=== PATIENT | male | born 1935 | race African-American/Black ===

== ENCOUNTER 2020-01-19 05:53 | Inpatient (IN) | payer MEDICARE, BC ==
[~2020-01-19] VITALS: Ht 172.7 cm; Wt 80.3 kg
[2020-01-19] MEDS ORDERED: NITROGLYCERIN OINT 1GM/INCH UDPKT TD ONE (06:30)
[2020-01-19 06:41] LABS: BASOPHILS % 1.1 % (0.0-2.0); EOSINOPHILS % 0.6 % (0.0-5.0); HEMOGLOBIN. 11.8 g/dL (14.0-18.0); LYMPHOCYTES % 55.2 % (20.0-50.0); MEAN CORPUSCULAR HEMOGLOBIN 29.2 pg (28.0-32.0); MEAN CORPUSCULAR VOLUME 86.7 fL (80.0-94.0); MEAN PLATELET VOLUME 8.7 fl (7.4-10.4); MONOCYTES % 13.6 % (2.0-8.0); NEUTROPHILS % 29.5 % (40.0-76.0); PLATELET 129 x1000/uL (130-400); RED BLOOD CELL COUNT 4.04 mill/uL (4.7-6.1); RED CELL DISTRIBUTION WIDTH 16.4 % (11.6-14.6)
[2020-01-19 06:47] LABS: CHLORIDE 112 mEq/L (98-107)
[2020-01-19] MEDS ORDERED: FUROSEMIDE 40MG/4ML VIAL IVP ONE (07:15)
[2020-01-19] MEDS ORDERED: GUAIFENESIN/DM 600MG/30MG ER TAB 12HR PO SCH (09:45)
[2020-01-19] MEDS ORDERED: ENOXAPARIN 40MG/0.4ML SYR SUBCUT SCH (09:45)
[2020-01-19] MEDS ORDERED: LORAZEPAM 0.5MG TABLET PO PRN (09:45)
[2020-01-19] MEDS ORDERED: ACETAMINOPHEN 325MG TABLET PO PRN ×2 (09:45)
[2020-01-19] MEDS ORDERED: DOCUSATE SODIUM 100MG CAPSULE PO PRN (09:45)
[2020-01-19] MEDS ORDERED: TRAMADOL 50MG TABLET PO PRN (09:45)
[2020-01-19] MEDS ORDERED: NITROGLYCERIN 0.4MG TABLET SL SL PRN (09:45)
[2020-01-19] MEDS ORDERED: GUAIFENESIN 200MG/10ML SUGAR FREE UDC PO PRN (09:45)
[2020-01-19] MEDS ORDERED: MAGNESIUM/ALUMINUM HYDROXIDE/SIMETHICONE 30ML UDC PO PRN (09:45)
[2020-01-19] MEDS ORDERED: ONDANSETRON HCL 4MG/2ML INJ IV PRN (09:45)
[2020-01-19] MEDS ORDERED: IPRATROPIUM/ALBUTEROL 0.5-3(2.5)MG/3ML NEB ORI PRN (09:45)
[2020-01-19 12:01] LABS: FOLIC ACID (FOLATE) SERUM >20 ng/mL ng/mL (>5.38)
[2020-01-19 12:02] LABS: BG BASE EXCESS -0.7 mmol/L (-2.0-2.0); BG CARBOXYHEMOGLOBIN 0.3 % (0.5-1.5); BG FRACTION INSPIRED OXYGEN 28; BG HCO3 ACT 24.6 mmol/L (22.0-26.0); BG METHEMOGLOBIN 0.2 % (0.0-1.5); BG OXYHEMOGLOBIN 95.5 % (94.0-97.0); BG PCO2 43.1 mmHg (35.0-45.0); BG PH 7.374 (7.350-7.450); BG PO2 88.8 mmHg (75.0-100.0); BG SAMPLE SITE RIGHT BRACHIAL; BG TOTAL HEMOGLOBIN 11.9 g/dL (12.0-18.0); BG VENT MODE NASAL CANNULA
[2020-01-19 12:17] LABS: VITAMIN B12 SERUM >2000 pg/mL pg/mL (211-911)
[2020-01-19] MEDS: ENOXAPARIN 40MG/0.4ML SYR SUBCUT SCH (12:37)
[2020-01-19 15:51] LABS: CREATINE KINASE MB FRACTION 1.4 ng/mL (0.5-3.6)
[2020-01-19] MEDS: CARVEDILOL 6.25 MG TABLET PO SCH (17:02)
[2020-01-19] MEDS: FUROSEMIDE 40MG/4ML VIAL IVP SCH (17:02)
[2020-01-19] MEDS ORDERED: FUROSEMIDE 40MG/4ML VIAL IVP SCH (17:15)
[2020-01-19] MEDS ORDERED: CARVEDILOL 3.125 MG TABLET PO SCH (18:00)
[2020-01-19] MEDS ORDERED: ZOLPIDEM TARTRATE 5MG TABLET PO PRN (21:00)
[2020-01-19] MEDS ORDERED: FAMOTIDINE 20MG TABLET PO SCH (21:00)
[2020-01-19] MEDS: GUAIFENESIN/DM 600MG/30MG ER TAB 12HR PO SCH (21:02)
[2020-01-19] MEDS: AMLODIPINE 5MG TABLET PO SCH (21:03)
[2020-01-19] MEDS: ASCORBIC ACID 500 MG TABLET PO SCH (21:04)
[2020-01-19] MEDS: LISINOPRIL 20MG TABLET PO SCH (21:04)
[2020-01-19 21:35] LABS: CLARITY URINE CLEAR (CLEAR); COLOR URINE YELLOW (YELLOW); KETONES URINE NEGATIVE (NEGATIVE); LEUKOCYTE ESTERASE URINE NEGATIVE (NEGATIVE); NITRITE URINE NEGATIVE (NEGATIVE); OCCULT BLOOD URINE NEGATIVE (NEGATIVE); PH URINE 5.5 (4.5-8.0); PROTEIN URINE NEGATIVE (NEGATIVE); SPECIFIC GRAVITY URINE 1.007 (1.005-1.030); UROBILINOGEN URINE 0.2 E.U./dL (0.2-1.0)
[2020-01-19] MEDS: ATORVASTATIN CALCIUM 40MG TABLET PO SCH (21:37)
[2020-01-19] MEDS: SPIRONOLACTONE 25MG TABLET PO SCH (21:37)
[2020-01-20] VITALS: BP 116/68
[2020-01-20] MEDS ORDERED: LISI-604 PO (00:50)
[2020-01-20 04:00] VITALS: BP 175/67
[2020-01-20] MEDS: CLONIDINE 0.1MG TABLET PO PRN ×2 (04:32→12:47)
[2020-01-20] MEDS: FUROSEMIDE 40MG/4ML VIAL IVP SCH ×2 (05:49→17:40)
[2020-01-20] MEDS: CARVEDILOL 6.25 MG TABLET PO SCH ×2 (05:49→17:41)
[2020-01-20 06:25] LABS: BASOPHILS % 0.6 % (0.0-2.0); EOSINOPHILS % 0.2 % (0.0-5.0); HEMATOCRIT. 34.5 % (42.0-52.0); HEMOGLOBIN. 11.4 g/dL (14.0-18.0); LYMPHOCYTES % 27.3 % (20.0-50.0); MEAN CORPUSCULAR HEMOGLOBIN 28.4 pg (28.0-32.0); MEAN CORPUSCULAR VOLUME 85.6 fL (80.0-94.0); MEAN PLATELET VOLUME 8.8 fl (7.4-10.4); MONOCYTES % 12.3 % (2.0-8.0); NEUTROPHILS % 59.6 % (40.0-76.0); PLATELET 131 x1000/uL (130-400); RED BLOOD CELL COUNT 4.03 mill/uL (4.7-6.1); RED CELL DISTRIBUTION WIDTH 16.2 % (11.6-14.6)
[2020-01-20 06:41] LABS: PHOSPHORUS 3.6 mg/dL (2.5-4.9)
[2020-01-20 08:00] VITALS: BP 146/56
[2020-01-20] MEDS: GUAIFENESIN/DM 600MG/30MG ER TAB 12HR PO SCH ×2 (09:00→20:39)
[2020-01-20] MEDS ORDERED: ASPIRIN 325MG EC TABLET PO SCH (09:00)
[2020-01-20] MEDS: ASCORBIC ACID 500 MG TABLET PO SCH ×2 (09:36→20:39)
[2020-01-20] MEDS: SPIRONOLACTONE 25MG TABLET PO SCH ×2 (09:36→20:39)
[2020-01-20] MEDS: AMLODIPINE 5MG TABLET PO SCH ×2 (09:37→20:39)
[2020-01-20] MEDS: LISINOPRIL 20MG TABLET PO SCH ×2 (09:37→20:40)
[2020-01-20] MEDS: ZINC SULFATE 220 MG ( 50 ) CAPSULE PO SCH (09:37)
[2020-01-20] MEDS: ASPIRIN 81MG TABLET PO SCH (09:37)
[2020-01-20 12:03] VITALS: BP 164/57
[2020-01-20] MEDS: ENOXAPARIN 40MG/0.4ML SYR SUBCUT SCH (12:47)
[2020-01-20] MEDS: FAMOTIDINE 10MG TABLET PO SCH (12:47)
[2020-01-20] MEDS: HYDRALAZINE HCL 50MG TABLET PO SCH ×2 (15:57→20:40)
[2020-01-20 16:00] VITALS: BP 156/59
[2020-01-20 20:00] VITALS: BP 124/44
[2020-01-20] MEDS: ATORVASTATIN CALCIUM 40MG TABLET PO SCH (20:40)
[2020-01-21] VITALS: BP 131/47
[2020-01-21 04:00] VITALS: BP 159/57
[2020-01-21] MEDS: FUROSEMIDE 40MG/4ML VIAL IVP SCH (05:52)
[2020-01-21] MEDS: CARVEDILOL 6.25 MG TABLET PO SCH (05:53)
[2020-01-21 07:03] LABS: BASOPHILS % 0.7 % (0.0-2.0); EOSINOPHILS % 0.5 % (0.0-5.0); HEMATOCRIT. 35.5 % (42.0-52.0); HEMOGLOBIN. 11.9 g/dL (14.0-18.0); MEAN CORPUSCULAR HEMOGLOBIN 28.3 pg (28.0-32.0); MEAN CORPUSCULAR VOLUME 84.3 fL (80.0-94.0); MEAN PLATELET VOLUME 9.4 fl (7.4-10.4); MONOCYTES % 14.9 % (2.0-8.0); NEUTROPHILS % 47.9 % (40.0-76.0); PLATELET 144 x1000/uL (130-400); RED BLOOD CELL COUNT 4.21 mill/uL (4.7-6.1); RED CELL DISTRIBUTION WIDTH 15.8 % (11.6-14.6)
[2020-01-21 08:00] VITALS: BP 161/60
[2020-01-21] MEDS: GUAIFENESIN/DM 600MG/30MG ER TAB 12HR PO SCH (09:00)
[2020-01-21] MEDS: LISINOPRIL 20MG TABLET PO SCH (11:00)
[2020-01-21] MEDS: ZINC SULFATE 220 MG ( 50 ) CAPSULE PO SCH (11:00)
[2020-01-21] MEDS: ASPIRIN 81MG TABLET PO SCH (11:00)
[2020-01-21] MEDS: AMLODIPINE 5MG TABLET PO SCH (11:01)
[2020-01-21] MEDS: SPIRONOLACTONE 25MG TABLET PO SCH (11:01)
[2020-01-21] MEDS: HYDRALAZINE HCL 50MG TABLET PO SCH (11:01)
[2020-01-21] MEDS: FAMOTIDINE 10MG TABLET PO SCH (11:01)
[2020-01-21] MEDS: ASCORBIC ACID 500 MG TABLET PO SCH (11:01)
[2020-01-21 12:00] VITALS: BP 142/63
[2020-01-21] MEDS: ENOXAPARIN 40MG/0.4ML SYR SUBCUT SCH (13:13)
[2020-01-21] MEDS ORDERED: DIPHENHYDRAMINE 50MG/ML VIAL IV SCH (13:15)
[2020-01-21] MEDS ORDERED: MORPHINE SULFATE 2 MG/ML CPJ (NOT FOR IM USE) IV SCH (13:15)
[2020-01-21] MEDS ORDERED: ENOXAPARIN 30MG/0.3ML SYR SUBCUT SCH (13:30)
[2020-01-21 14:55] VITALS: BP 142/63
== END 2020-01-21 15:44 | disposition home or self-care (01) | DRG 291 ==
LOC: ER 05:53 → UNDOADMIN 07:39 → MICUSO 07:39 → 5WST 07:39 → EDBEDREQTM 07:44 → EDBEDREQ 07:44 → SUPCPDRO 16:56 → ENRESERV 22:56
PROVIDERS: ADMIT Internal Medicine; ATTEND Internal Medicine
DX: I13.0 Hypertensive heart and chronic kidney disease with heart failure and stage 1 through stage 4 chronic kidney disease, or unspecified chronic kidney disease (principal); J96.01 Acute respiratory failure with hypoxia; I50.43 Acute on chronic combined systolic (congestive) and diastolic (congestive) heart failure; N17.0 Acute kidney failure with tubular necrosis; E83.51 Hypocalcemia; E78.5 Hyperlipidemia, unspecified; N18.3 Chronic kidney disease, stage 3 (moderate); D69.6 Thrombocytopenia, unspecified; I25.10 Atherosclerotic heart disease of native coronary artery without angina pectoris; Z20.828 Contact with and (suspected) exposure to other viral communicable diseases; I25.5 Ischemic cardiomyopathy; Z79.82 Long term (current) use of aspirin; Z79.899 Other long term (current) drug therapy; Z95.1 Presence of aortocoronary bypass graft; Z82.49 Family history of ischemic heart disease and other diseases of the circulatory system; D63.8 Anemia in other chronic diseases classified elsewhere
CPT/HCPCS: 36415; 36600; 71045; 76770; 80048; 80053; 80061; 81003; 82375; 82550; 82553; 82607; 82746; 82805; 83036; 83540; 83550; 83735; 83880; 84100; 84443; 84484; 85025; 93005; 93306; 93970; 99291; J1650; J1940; C9803-CS; U0003-CS

== ENCOUNTER 2021-03-31 01:08 | Inpatient (IN) | payer MEDICARE, BC ==
[~2021-03-31] VITALS: Ht 172.7 cm; Wt 79.4 kg
[~2021-03-31 01:08] MED LIST: LISI20TA31 PO
[2021-03-31] MEDS ORDERED: NITROGLYCERIN 0.4MG TABLET SL SL PRN ×2 (01:30→07:30)
[2021-03-31] MEDS ORDERED: NITROGLYCERIN OINT 1GM/INCH UDPKT TD ONE (01:30)
[2021-03-31] MEDS ORDERED: FUROSEMIDE 40MG/4ML VIAL IV ONE (01:30)
[2021-03-31] MEDS ORDERED: FUROSEMIDE 40MG/4ML VIAL ONE (01:51)
[2021-03-31 01:54] LABS: CHLORIDE 111 mEq/L (98-107)
[2021-03-31 01:58] LABS: BASOPHILS % 1.1 % (0.0-2.0); EOSINOPHILS % 0.8 % (0.0-5.0); HEMATOCRIT. 33.5 % (42.0-52.0); LYMPHOCYTES % 44.7 % (20.0-50.0); MEAN CORPUSCULAR HEMOGLOBIN 28.5 pg (28.0-32.0); MONOCYTES % 10.9 % (2.0-8.0); NEUTROPHILS % 42.5 % (40.0-76.0); PLATELET 126 x1000/uL (130-400); RED BLOOD CELL COUNT 3.85 mill/uL (4.7-6.1); RED CELL DISTRIBUTION WIDTH 15.9 % (11.6-14.6)
[2021-03-31 02:11] LABS: BG BASE EXCESS -1.4 mmol/L (-2.0-2.0); BG CARBOXYHEMOGLOBIN 0.3 % (0.5-1.5); BG DEOXYHEMOGLOBIN 3.8 % (0.0-5.0); BG FRACTION INSPIRED OXYGEN 100; BG HCO3 ACT 25.6 mmol/L (22.0-26.0); BG METHEMOGLOBIN 0.3 % (0.0-1.5); BG OXYGEN SATURATION 96.2 % (92.0-98.5); BG OXYHEMOGLOBIN 95.6 % (94.0-97.0); BG PCO2 53.2 mmHg (35.0-45.0); BG PO2 99.9 mmHg (75.0-100.0); BG TOTAL HEMOGLOBIN 11.5 g/dL (12.0-18.0); BG VENT MODE MASK - BIPAP
[2021-03-31] MEDS ORDERED: ALBUTEROL (0.083%) 2.5MG/3ML NEB HHN SCH (02:15)
[2021-03-31] MEDS ORDERED: HYDRALAZINE 20MG/ML VIAL IV SCH (03:15)
[2021-03-31] MEDS ORDERED: DOCUSATE SODIUM 100MG CAPSULE PO PRN (07:30)
[2021-03-31] MEDS ORDERED: TRAMADOL 50MG TABLET PO PRN (07:30)
[2021-03-31] MEDS ORDERED: ZOLPIDEM TARTRATE 5MG TABLET PO PRN (07:30)
[2021-03-31] MEDS ORDERED: MAGNESIUM/ALUMINUM HYDROXIDE/SIMETHICONE 30ML UDC PO PRN (07:30)
[2021-03-31] MEDS ORDERED: ONDANSETRON HCL 4MG/2ML INJ IV PRN (07:30)
[2021-03-31] MEDS ORDERED: IPRATROPIUM/ALBUTEROL 0.5-3(2.5)MG/3ML NEB NEB PRN (07:30)
[2021-03-31] MEDS ORDERED: ACETAMINOPHEN 325MG TABLET PO PRN ×2 (07:30)
[2021-03-31] MEDS ORDERED: METHYLPREDNISOLONE SOD SUCC 125 MG/2 ML VIAL IV SCH (08:00)
[2021-03-31] MEDS ORDERED: LEVOFLOXACIN 500MG PREMIX 100 ML IV NR ×2 (08:00→10:00)
[2021-03-31] MEDS: IPRATROPIUM/ALBUTEROL 0.5-3(2.5)MG/3ML NEB HHN SCH ×4 (08:12→20:40)
[2021-03-31 08:33] LABS: T4 FREE 0.86 ng/dL (0.76-1.46)
[2021-03-31 08:44] LABS: FOLIC ACID (FOLATE) SERUM >20 ng/mL ng/mL (>5.38)
[2021-03-31 08:55] LABS: VITAMIN B12 SERUM >2000 pg/mL pg/mL (211-911)
[2021-03-31] MEDS: CHOLECALCIFEROL (D3) 1000 UNIT TABLET PO SCH (09:00)
[2021-03-31 09:25] VITALS: BP 172/69
[2021-03-31 09:45] LABS: *AMPHETAMINES SCREEN URINE NEGATIVE (NEGATIVE); *BARBITURATES SCREEN URINE NEGATIVE (NEGATIVE); *BENZODIAZEPINES SCREEN URINE NEGATIVE (NEGATIVE); *COCAINE SCREEN URINE NEGATIVE (NEGATIVE); OPIATES URINE SCREEN NEGATIVE (NEGATIVE); PHENCYCLIDINE URINE SCREEN NEGATIVE (NEGATIVE)
[2021-03-31 09:46] LABS: CANNABINOID URINE SCREEN NEGATIVE (NEGATIVE)
[2021-03-31 09:58] LABS: METHADONE URINE SCREEN NEGATIVE (NEGATIVE)
[2021-03-31] MEDS: ASCORBIC ACID 500 MG TABLET PO SCH ×2 (10:22→21:09)
[2021-03-31] MEDS: FUROSEMIDE 40MG/4ML VIAL IVP SCH ×2 (10:22→21:10)
[2021-03-31] MEDS: ZINC SULFATE 220 MG ( 50 ) CAPSULE PO SCH (10:23)
[2021-03-31] MEDS: ASPIRIN 325MG EC TABLET PO SCH (10:23)
[2021-03-31] MEDS: GUAIFENESIN/DM 600MG/30MG ER TAB 12HR PO SCH ×2 (10:23→21:09)
[2021-03-31] MEDS: FAMOTIDINE 20MG TABLET PO SCH (10:23)
[2021-03-31] MEDS: SPIRONOLACTONE 25MG TABLET PO SCH ×2 (10:24→21:10)
[2021-03-31] MEDS: ENOXAPARIN 30MG/0.3ML SYR SUBCUT SCH (10:24)
[2021-03-31 12:00] VITALS: BP 165/54
[2021-03-31] MEDS: LISINOPRIL 20MG TABLET PO SCH (14:30)
[2021-03-31] MEDS: METHYLPREDNISOLONE SOD SUCC 40 MG/ML VIAL IV SCH (14:31)
[2021-03-31] MEDS ORDERED: FURO40TA5 PO (15:25)
[2021-03-31] MEDS ORDERED: [UNRECOGNIZED DRUG - CODE] PO (15:25)
[2021-03-31] MEDS ORDERED: FOLI-43 PO (15:25)
[2021-03-31] MEDS ORDERED: ATOR40TA70 PO (15:25)
[2021-03-31] MEDS ORDERED: AMLO10TA80 PO (15:25)
[2021-03-31] MEDS ORDERED: CARV25TA47 PO (15:25)
[2021-03-31 16:00] VITALS: BP 166/58
[2021-03-31 17:18] LABS: CREATINE KINASE 170 IU/L (39-308)
[2021-03-31 17:19] LABS: CREATINE KINASE MB FRACTION 2.4 ng/mL (0.5-3.6)
[2021-03-31 20:00] VITALS: BP 146/59
[2021-03-31] MEDS ORDERED: NALOXONE HCL 0.4MG/ML VIAL IV PRN (21:30)
[2021-04-01] VITALS: BP 156/55
[2021-04-01] MEDS: IPRATROPIUM/ALBUTEROL 0.5-3(2.5)MG/3ML NEB HHN SCH ×6 (00:03→21:09)
[2021-04-01 04:00] VITALS: BP 144/64
[2021-04-01 06:20] LABS: BASOPHILS % 0.2 % (0.0-2.0); HEMATOCRIT. 34.2 % (42.0-52.0); MEAN CORPUSCULAR HEMOGLOBIN 27.9 pg (28.0-32.0); MEAN CORPUSCULAR VOLUME 86.4 fL (80.0-94.0); MEAN PLATELET VOLUME 9.5 fl (7.4-10.4); MONOCYTES % 1.1 % (2.0-8.0); NEUTROPHILS % 89.7 % (40.0-76.0); PLATELET 137 x1000/uL (130-400); RED BLOOD CELL COUNT 3.96 mill/uL (4.7-6.1); RED CELL DISTRIBUTION WIDTH 15.6 % (11.6-14.6)
[2021-04-01 06:31] LABS: CHLORIDE 108 mEq/L (98-107)
[2021-04-01 06:41] LABS: PHOSPHORUS 3.2 mg/dL (2.5-4.9)
[2021-04-01 08:00] VITALS: BP 113/56
[2021-04-01] MEDS: CHOLECALCIFEROL (D3) 1000 UNIT TABLET PO SCH (09:00)
[2021-04-01] MEDS ORDERED: LEVOFLOXACIN 250MG PREMIX 50 ML IV SCH (09:00)
[2021-04-01] MEDS: GUAIFENESIN/DM 600MG/30MG ER TAB 12HR PO SCH ×2 (09:37→21:09)
[2021-04-01] MEDS: FAMOTIDINE 20MG TABLET PO SCH (09:37)
[2021-04-01] MEDS: ASPIRIN 325MG EC TABLET PO SCH (09:38)
[2021-04-01] MEDS: ASCORBIC ACID 500 MG TABLET PO SCH ×2 (09:38→21:08)
[2021-04-01] MEDS: ZINC SULFATE 220 MG ( 50 ) CAPSULE PO SCH (09:38)
[2021-04-01] MEDS: SPIRONOLACTONE 25MG TABLET PO SCH ×2 (09:38→21:09)
[2021-04-01] MEDS: LISINOPRIL 20MG TABLET PO SCH (09:38)
[2021-04-01] MEDS: LEVOFLOXACIN 250MG PREMIX 50 ML IV SCH (09:39)
[2021-04-01] MEDS: FUROSEMIDE 40MG/4ML VIAL IVP SCH ×2 (09:41→21:09)
[2021-04-01] MEDS: ENOXAPARIN 30MG/0.3ML SYR SUBCUT SCH (09:41)
[2021-04-01] MEDS: METHYLPREDNISOLONE SOD SUCC 40 MG/ML VIAL IV SCH (09:41)
[2021-04-01 12:00] VITALS: BP 161/60
[2021-04-01 16:00] VITALS: BP 115/58
[2021-04-01 20:03] VITALS: BP 162/63
[2021-04-02] VITALS: BP 151/64
[2021-04-02] MEDS: IPRATROPIUM/ALBUTEROL 0.5-3(2.5)MG/3ML NEB HHN SCH ×5 (00:45→20:00)
[2021-04-02 04:00] VITALS: BP 124/70
[2021-04-02 08:00] VITALS: BP 168/64
[2021-04-02] MEDS: LEVOFLOXACIN 250MG PREMIX 50 ML IV SCH (08:42)
[2021-04-02] MEDS: SPIRONOLACTONE 25MG TABLET PO SCH ×2 (08:43→21:07)
[2021-04-02] MEDS: FUROSEMIDE 40MG/4ML VIAL IVP SCH ×2 (08:43→21:06)
[2021-04-02] MEDS: GUAIFENESIN/DM 600MG/30MG ER TAB 12HR PO SCH ×2 (08:43→21:07)
[2021-04-02] MEDS: LISINOPRIL 20MG TABLET PO SCH (08:44)
[2021-04-02] MEDS: ASCORBIC ACID 500 MG TABLET PO SCH ×2 (08:44→21:06)
[2021-04-02] MEDS: CHOLECALCIFEROL (D3) 1000 UNIT TABLET PO SCH (08:44)
[2021-04-02] MEDS: FAMOTIDINE 20MG TABLET PO SCH (08:45)
[2021-04-02] MEDS: ASPIRIN 325MG EC TABLET PO SCH (08:45)
[2021-04-02] MEDS: ZINC SULFATE 220 MG ( 50 ) CAPSULE PO SCH (08:45)
[2021-04-02] MEDS: ENOXAPARIN 30MG/0.3ML SYR SUBCUT SCH (08:46)
[2021-04-02 12:00] VITALS: BP 123/63
[2021-04-02 16:00] VITALS: BP 142/72
[2021-04-02 20:00] VITALS: BP 169/75
[2021-04-02] MEDS: CLONIDINE 0.1MG TABLET PO PRN (21:07)
[2021-04-03] VITALS: BP 122/71
[2021-04-03] MEDS: IPRATROPIUM/ALBUTEROL 0.5-3(2.5)MG/3ML NEB HHN SCH ×5 (04:00→21:28)
[2021-04-03 08:00] VITALS: BP 111/78
[2021-04-03] MEDS: ENOXAPARIN 30MG/0.3ML SYR SUBCUT SCH (08:35)
[2021-04-03] MEDS: FUROSEMIDE 40MG/4ML VIAL IVP SCH ×2 (08:35→21:49)
[2021-04-03] MEDS: GUAIFENESIN/DM 600MG/30MG ER TAB 12HR PO SCH ×2 (08:36→21:49)
[2021-04-03] MEDS: ZINC SULFATE 220 MG ( 50 ) CAPSULE PO SCH (08:36)
[2021-04-03] MEDS: FAMOTIDINE 20MG TABLET PO SCH (08:36)
[2021-04-03] MEDS: LISINOPRIL 20MG TABLET PO SCH (08:36)
[2021-04-03] MEDS: ASPIRIN 325MG EC TABLET PO SCH (08:36)
[2021-04-03] MEDS: ASCORBIC ACID 500 MG TABLET PO SCH ×2 (08:37→21:49)
[2021-04-03] MEDS: SPIRONOLACTONE 25MG TABLET PO SCH ×2 (08:37→21:49)
[2021-04-03] MEDS: LEVOFLOXACIN 250MG PREMIX 50 ML IV SCH (08:37)
[2021-04-03] MEDS: CHOLECALCIFEROL (D3) 1000 UNIT TABLET PO SCH (09:00)
[2021-04-03 12:00] VITALS: BP 165/70
[2021-04-03] MEDS: CLONIDINE 0.1MG TABLET PO PRN (12:36)
[2021-04-03 16:00] VITALS: BP 151/69
[2021-04-03 20:00] VITALS: BP 156/66
[2021-04-04] VITALS: BP 142/74
[2021-04-04] MEDS: IPRATROPIUM/ALBUTEROL 0.5-3(2.5)MG/3ML NEB HHN SCH ×4 (01:01→12:00)
[2021-04-04 04:00] VITALS: BP 155/74
[2021-04-04 08:00] VITALS: BP 160/60
[2021-04-04] MEDS: CHOLECALCIFEROL (D3) 1000 UNIT TABLET PO SCH (09:00)
[2021-04-04] MEDS: GUAIFENESIN 200MG/10ML SUGAR FREE UDC PO PRN ×2 (09:44→10:15)
[2021-04-04] MEDS: ZINC SULFATE 220 MG ( 50 ) CAPSULE PO SCH (09:46)
[2021-04-04] MEDS: ASPIRIN 325MG EC TABLET PO SCH (09:46)
[2021-04-04] MEDS: FAMOTIDINE 20MG TABLET PO SCH (09:46)
[2021-04-04] MEDS: ASCORBIC ACID 500 MG TABLET PO SCH (09:46)
[2021-04-04] MEDS: FUROSEMIDE 40MG/4ML VIAL IVP SCH (09:48)
[2021-04-04] MEDS: ENOXAPARIN 30MG/0.3ML SYR SUBCUT SCH (09:52)
[2021-04-04] MEDS: SPIRONOLACTONE 25MG TABLET PO SCH (10:16)
[2021-04-04] MEDS: LISINOPRIL 20MG TABLET PO SCH (10:17)
[2021-04-04] MEDS: GUAIFENESIN/DM 600MG/30MG ER TAB 12HR PO SCH (10:29)
[2021-04-04] MEDS ORDERED: LEVOFLOXACIN 250MG TABLET PO SCH (11:00)
[2021-04-04 12:00] VITALS: BP 162/76
[2021-04-04 12:31] VITALS: BP 162/76
== END 2021-04-04 14:20 | disposition home health service (06) | DRG 291 ==
LOC: ER 01:08 → MICUSO 04:51 → SUPCPDRO 07:15 → ENRESERV 07:48 → 6WST 08:37
PROVIDERS: ADMIT Internal Medicine; ATTEND Internal Medicine
PROC: 5A09357 Assistance with Respiratory Ventilation, Less than 24 Consecutive Hours, Continuous Positive Airway Pressure (ICD-10-PCS; principal; 2021-03-31)
DX: I13.0 Hypertensive heart and chronic kidney disease with heart failure and stage 1 through stage 4 chronic kidney disease, or unspecified chronic kidney disease (principal); J96.01 Acute respiratory failure with hypoxia; N17.0 Acute kidney failure with tubular necrosis; J96.02 Acute respiratory failure with hypercapnia; I50.43 Acute on chronic combined systolic (congestive) and diastolic (congestive) heart failure; D61.818 Other pancytopenia; J44.1 Chronic obstructive pulmonary disease with (acute) exacerbation; E87.2 Acidosis; I27.29 Other secondary pulmonary hypertension; I25.10 Atherosclerotic heart disease of native coronary artery without angina pectoris; D63.8 Anemia in other chronic diseases classified elsewhere; N18.9 Chronic kidney disease, unspecified; F17.200 Nicotine dependence, unspecified, uncomplicated; Z82.49 Family history of ischemic heart disease and other diseases of the circulatory system; Z91.14 Patient's other noncompliance with medication regimen; Z95.1 Presence of aortocoronary bypass graft; Z20.822 Contact with and (suspected) exposure to COVID-19
CPT/HCPCS: 36415; 36600; 71045; 80053; 80061; 80305; 82375; 82550; 82553; 82607; 82746; 82805; 83036; 83540; 83550; 83735; 83880; 84100; 84145; 84439; 84443; 84484; 85025; 87426; 93005; 93306; 93970; 94640; 94660; 97162; 97166; 99291; C1893; J0360; J1650; J1940; J1956; J2405; J2920; J2930